=== PATIENT | male | born 1945 | race Caucasian/White ===

== ENCOUNTER 2017-06-20 13:28 | Inpatient (IN) | payer MEDICARE, BC ==
[~2017-06-20] VITALS: Ht 177.8 cm; Wt 77.9 kg
[2017-06-20] MEDS ORDERED: SODIUM CHLORIDE FLUSH 10ML SYR IVF ONE (13:30)
[2017-06-20] MEDS ORDERED: HEPARIN PROTOCOL IIB/IIIA POST-LYTIC MC ONE ×2 (13:30→19:30)
[2017-06-20] MEDS ORDERED: PROPOFOL 100 ML IV ONE (13:31)
[2017-06-20] MEDS: PROPOFOL 100 ML IV PRN ×3 (13:42→22:00)
[2017-06-20] MEDS ORDERED: AMIODARONE 900 MG in DEXTROSE 5% 500 ML IV PRN (13:58)
[2017-06-20 13:59] LABS: BASOPHILS # (AUTO) 0.13 x10^3/uL (0-0.1); BASOPHILS % (AUTO) 1 % (0-1); EOSINOPHILS # (AUTO) 0.03 x10^3/uL (0-0.4); EOSINOPHILS % (AUTO) 0 % (1-7); LYMPHOCYTES # (AUTO) 0.69 x10^3/uL (1-3.4); LYMPHOCYTES % (AUTO) 4 % (22-44); MD NO; MEAN CORPUSCULAR HEMOGLOBIN 32.5 pg (27.5-34.5); MEAN CORPUSCULAR HGB CONC 33.4 g/dL (33.2-36.2); MEAN CORPUSCULAR VOLUME 97.1 fL (81-97); MEAN PLATELET VOLUME 10.2 fL (7.4-10.4); MONOCYTES # (AUTO) 0.47 x10^3/uL (0.2-0.8); MONOCYTES % (AUTO) 3 % (2-9); NEUTROPHILS # (AUTO) 15.88 x10^3/uL (1.8-6.8); NEUTROPHILS % (AUTO) 92 % (42-75); PLATELET COUNT 163 x10^3/uL (130-400); RED BLOOD COUNT 4.83 x10^6/uL (4.38-5.82); RED CELL DISTRIBUTION WIDTH 13.2 % (9.4-14.8)
[2017-06-20] MEDS ORDERED: HEPARIN 5,000 UNITS/ML, 1ML IV ONE (14:00)
[2017-06-20] MEDS ORDERED: PLEASE ENTER ALLERGIES MC SCH (14:00)
[2017-06-20] MEDS ORDERED: SODIUM CHLORIDE FLUSH 10ML SYR IVF PRN (14:00)
[2017-06-20] MEDS ORDERED: HEPARIN 25,000 UNITS/500ML PMX 500 ML IV PRN ×3 (14:00→19:14)
[2017-06-20 14:08] LABS: INTERNATIONAL NORMALIZED RATIO 1.05 (0.93-1.1); PROTHROMBIN TIME 10.8 Seconds (9.6-11.5)
[2017-06-20 14:10] LABS: ALBUMIN 3.5 g/dL (3.4-5.0); ANION GAP 7 mmol/L (5-15); CALCIUM 8.8 mg/dL (8.5-10.1); CHLORIDE 109 mmol/L (98-107); CREATININE 1.27 mg/dL (0.7-1.3)
[2017-06-20] MEDS ORDERED: PHARMACY MAY ADJ FOR RENAL FX MC SCH (14:30)
[2017-06-20] MEDS ORDERED: FILTER 0.22 MICRON IV PRN ×2 (14:30→23:45)
[2017-06-20] MEDS ORDERED: FILTER 1.2 MICRON IV PRN (14:30)
[2017-06-20] MEDS ORDERED: LIDOCAINE-MPF 1%, 2ML ENDO PRN (14:30)
[2017-06-20] MEDS ORDERED: CLOPIDOGREL 300 MG TABLET PO ONE (15:00)
[2017-06-20] MEDS ORDERED: POLYETHYLENE GLYCOL 17 GM PACKET PO PRN (15:00)
[2017-06-20] MEDS ORDERED: BISACODYL 10 MG SUPP PR PRN (15:00)
[2017-06-20] MEDS ORDERED: HEPARIN 5,000 UNITS/ML, 1ML ONE (16:15)
[2017-06-20 17:23] VITALS: BP 123/76
[2017-06-20 17:57] VITALS: BP 123/72
[2017-06-20] MEDS: THIAMINE 100 MG, MVI ADULT 10 ML, FOLIC ACID 1 MG in D5%-0.9% NACL 1,000 ML IV SCH (18:24)
[2017-06-20 18:51] LABS: RAPID INFLUENZA A Negative (Negative); RAPID INFLUENZA B Negative (Negative)
[2017-06-20] MEDS: PIPERACILLIN/TAZO/PMX 3.375GM 50 ML IV SCH (22:27)
[2017-06-20] MEDS: FAMOTIDINE 20 MG/2 ML IVPush SCH (22:31)
[2017-06-20 23:14] LABS: AMPHETAMINE SCREEN, URINE Negative (Negative); BARBITURATE SCREEN, URINE Negative (Negative); BENZODIAZEPINE SCREEN, URINE Positive (Negative); CANNABINOID SCREEN, URINE Negative (Negative); COCAINE SCREEN, URINE Negative (Negative); METHADONE SCREEN, URINE Negative (Negative); MICROSCOPIC INDICATED; OPIATE SCREEN, URINE Negative (Negative)
[2017-06-20] MEDS: FENTANYL PF 100 MCG/2ML IVPush PRN (23:25)
[2017-06-20 23:30] LABS: CULTURE INDICATED? YES
[2017-06-20] MEDS ORDERED: AMIODARONE 900 MG in DEXTROSE 5% 482 ML IV PRN (23:30)
[2017-06-21] MEDS: FENTANYL PF 100 MCG/2ML IVPush PRN ×3 (01:11→20:35)
[2017-06-21] MEDS: PROPOFOL 100 ML IV PRN ×3 (02:44→20:35)
[2017-06-21] MEDS: PIPERACILLIN/TAZO/PMX 3.375GM 50 ML IV SCH ×4 (03:43→21:49)
[2017-06-21 04:00] VITALS: BP 109/67
[2017-06-21 05:10] LABS: MEAN CORPUSCULAR HEMOGLOBIN 33.4 pg (27.5-34.5); MEAN CORPUSCULAR HGB CONC 34.5 g/dL (33.2-36.2); MEAN CORPUSCULAR VOLUME 97.1 fL (81-97); MEAN PLATELET VOLUME 10.8 fL (7.4-10.4); PLATELET COUNT 134 x10^3/uL (130-400); RED BLOOD COUNT 4.72 x10^6/uL (4.38-5.82); RED CELL DISTRIBUTION WIDTH 13.1 % (9.4-14.8)
[2017-06-21 05:22] LABS: CHLORIDE 109 mmol/L (98-107)
[2017-06-21 05:34] LABS: ANION GAP 9 mmol/L (5-15); CREATININE 1.14 mg/dL (0.7-1.3)
[2017-06-21 05:40] LABS: MD YES
[2017-06-21 05:41] LABS: BAND#(MANUAL) 1.27 x10^3/uL; BANDS%(MANUAL) 7 % (0-7); LYMPH#(MANUAL) 1.27 x10^3/uL (1-3.4); LYMPHS% (MANUAL) 7 % (22-44); MONOS#(MANUAL) 0.36 x10^3/uL (0.3-2.7); MONOS% (MANUAL) 2 % (2-9); SEGS% (MANUAL) 84 % (42-75)
[2017-06-21 05:43] LABS: <PLATELET ESTIMATE> ADEQUATE; <RBC MORPHOLOGY> NORMAL; LARGE PLATELETS 1+
[2017-06-21 07:07] LABS: ALBUMIN 2.8 g/dL (3.4-5.0); ANION GAP 8 mmol/L (5-15); CALCIUM 7.9 mg/dL (8.5-10.1); CHLORIDE 109 mmol/L (98-107)
[2017-06-21 07:13] LABS: ALANINE AMINOTRANSFERASE 96 U/L (12-78); ALKALINE PHOSPHATASE 52 U/L (45-117); BILIRUBIN,TOTAL 1.8 mg/dL (0.2-1.0); CHOL/HDL RATIO 2.1; CHOLESTEROL, TOTAL 159 mg/dL (140-239); CREATININE 1.18 mg/dL (0.7-1.3); HDL CHOL % 47 % (26-37); HDL CHOLESTEROL (DIRECT) 75 mg/dL (40-60); LDL CHOLESTEROL,CALCULATED 76 mg/dL (54-169); TOTAL PROTEIN 5.8 g/dL (6.4-8.2); TRIGLYCERIDES 41 mg/dL (50-200); VLDL CHOLESTEROL 8 mg/dL (0-25)
[2017-06-21 07:18] LABS: THYROID STIMULATING HORMONE 0.565 mIU/L (0.358-3.740)
[2017-06-21] MEDS: FAMOTIDINE 20 MG/2 ML IVPush SCH ×2 (10:22→20:37)
[2017-06-21] MEDS: CLOPIDOGREL 75 MG TABLET PO SCH (18:21)
[2017-06-21] MEDS: ASPIRIN 81 MG TABLET CHEW PO SCH (18:21)
[2017-06-21] MEDS: THIAMINE 100 MG, MVI ADULT 10 ML, FOLIC ACID 1 MG in D5%-0.9% NACL 1,000 ML IV SCH (21:48)
[2017-06-22] MEDS: FENTANYL PF 100 MCG/2ML IVPush PRN ×3 (02:06→05:19)
[2017-06-22] MEDS: PIPERACILLIN/TAZO/PMX 3.375GM 50 ML IV SCH (03:55)
[2017-06-22 04:00] VITALS: BP 128/75
[2017-06-22] MEDS: PROPOFOL 100 ML IV PRN ×4 (04:04→23:35)
[2017-06-22 05:06] LABS: BASOPHILS # (AUTO) 0.03 x10^3/uL (0-0.1); BASOPHILS % (AUTO) 0 % (0-1); EOSINOPHILS # (AUTO) 0.27 x10^3/uL (0-0.4); EOSINOPHILS % (AUTO) 2 % (1-7); LYMPHOCYTES # (AUTO) 1.53 x10^3/uL (1-3.4); LYMPHOCYTES % (AUTO) 13 % (22-44); MD NO; MEAN CORPUSCULAR HEMOGLOBIN 33.2 pg (27.5-34.5); MEAN CORPUSCULAR HGB CONC 33.8 g/dL (33.2-36.2); MEAN CORPUSCULAR VOLUME 98.3 fL (81-97); MEAN PLATELET VOLUME 11.1 fL (7.4-10.4); MONOCYTES # (AUTO) 1.05 x10^3/uL (0.2-0.8); MONOCYTES % (AUTO) 9 % (2-9); NEUTROPHILS # (AUTO) 8.92 x10^3/uL (1.8-6.8); NEUTROPHILS % (AUTO) 76 % (42-75); PLATELET COUNT 126 x10^3/uL (130-400); RED BLOOD COUNT 4.16 x10^6/uL (4.38-5.82); RED CELL DISTRIBUTION WIDTH 13.2 % (9.4-14.8)
[2017-06-22 05:11] LABS: ANION GAP 6 mmol/L (5-15); CALCIUM 7.4 mg/dL (8.5-10.1); CHLORIDE 108 mmol/L (98-107); CREATININE 1.12 mg/dL (0.7-1.3)
[2017-06-22] MEDS: AMIODARONE 200 MG TABLET PO SCH ×2 (09:34→21:38)
[2017-06-22] MEDS: FAMOTIDINE 20 MG/2 ML IVPush SCH ×2 (09:34→21:37)
[2017-06-22] MEDS: DIAZEPAM 5 MG/ML, 10ML VIAL IVPush SCH ×4 (10:07→21:37)
[2017-06-22] MEDS: AMPICILLIN/SULBACTAM 3 GM in SODIUM CHLORIDE 0.9% 100 ML IV SCH ×3 (10:22→21:37)
[2017-06-22] MEDS: THIAMINE 100 MG, MVI ADULT 10 ML, FOLIC ACID 1 MG in D5%-0.9% NACL 1,000 ML IV SCH (14:55)
[2017-06-22] MEDS: ASPIRIN 81 MG TABLET CHEW PO SCH (16:59)
[2017-06-22] MEDS: CLOPIDOGREL 75 MG TABLET PO SCH (16:59)
[2017-06-23] MEDS: DIAZEPAM 5 MG/ML, 10ML VIAL IVPush SCH ×5 (00:28→20:47)
[2017-06-23] MEDS: FENTANYL PF 100 MCG/2ML IVPush PRN (02:48)
[2017-06-23] MEDS: AMPICILLIN/SULBACTAM 3 GM in SODIUM CHLORIDE 0.9% 100 ML IV SCH ×4 (03:27→20:47)
[2017-06-23 04:00] VITALS: BP 116/57
[2017-06-23] MEDS: PROPOFOL 100 ML IV PRN ×3 (05:06→17:58)
[2017-06-23 06:28] LABS: MEAN CORPUSCULAR HEMOGLOBIN 33.3 pg (27.5-34.5); MEAN CORPUSCULAR HGB CONC 34.4 g/dL (33.2-36.2); MEAN CORPUSCULAR VOLUME 96.7 fL (81-97); RED BLOOD COUNT 3.72 x10^6/uL (4.38-5.82); RED CELL DISTRIBUTION WIDTH 13.3 % (9.4-14.8)
[2017-06-23 06:31] LABS: ALANINE AMINOTRANSFERASE 57 U/L (12-78); ANION GAP 8 mmol/L (5-15); CALCIUM 7.9 mg/dL (8.5-10.1); CHLORIDE 112 mmol/L (98-107); CREATININE 0.82 mg/dL (0.7-1.3)
[2017-06-23 06:33] LABS: ALKALINE PHOSPHATASE 57 U/L (45-117); BILIRUBIN,TOTAL 0.6 mg/dL (0.2-1.0); TOTAL PROTEIN 5.3 g/dL (6.4-8.2); TRIGLYCERIDES 93 mg/dL (50-200)
[2017-06-23 06:53] LABS: BASOPHILS # (AUTO) 0.01 x10^3/uL (0-0.1); BASOPHILS % (AUTO) 0 % (0-1); EOSINOPHILS # (AUTO) 0.24 x10^3/uL (0-0.4); EOSINOPHILS % (AUTO) 3 % (1-7); LYMPHOCYTES # (AUTO) 0.92 x10^3/uL (1-3.4); LYMPHOCYTES % (AUTO) 11 % (22-44); MD SCAN; MEAN PLATELET VOLUME 11.1 fL (7.4-10.4); MONOCYTES # (AUTO) 0.82 x10^3/uL (0.2-0.8); MONOCYTES % (AUTO) 9 % (2-9); NEUTROPHILS # (AUTO) 6.71 x10^3/uL (1.8-6.8); NEUTROPHILS % (AUTO) 77 % (42-75); PLATELET COUNT 115 x10^3/uL (130-400)
[2017-06-23] MEDS ORDERED: POTASSIUM PHOSPHATE 44 MEQ in SODIUM CHLORIDE 0.9% 500 ML IV ONE (08:00)
[2017-06-23] MEDS: AMIODARONE 200 MG TABLET PO SCH ×2 (08:43→20:46)
[2017-06-23] MEDS: FAMOTIDINE 20 MG/2 ML IVPush SCH ×2 (08:43→20:47)
[2017-06-23] MEDS: FOLIC ACID 1 MG TABLET NG SCH (09:41)
[2017-06-23] MEDS: MULTIVITAMIN LIQUID NG SCH (09:41)
[2017-06-23] MEDS: THIAMINE 100MG TABLET NG SCH (09:41)
[2017-06-23 10:35] LABS: HIT RESULT NEGATIVE (NEGATIVE)
[2017-06-23] MEDS: POTASSIUM CHLORIDE 20 MEQ TAB.ER.PRT PO SCH (17:03)
[2017-06-23] MEDS: ASPIRIN 81 MG TABLET CHEW PO SCH (17:03)
[2017-06-23] MEDS: CLOPIDOGREL 75 MG TABLET PO SCH (17:03)
[2017-06-23] MEDS: FUROSEMIDE 20 MG/2 ML IV SCH (17:04)
[2017-06-24] MEDS: PROPOFOL 100 ML IV PRN ×3 (01:16→17:34)
[2017-06-24 04:00] VITALS: BP 145/68
[2017-06-24 04:10] LABS: ANION GAP 9 mmol/L (5-15); CALCIUM 8.5 mg/dL (8.5-10.1); CHLORIDE 111 mmol/L (98-107); CREATININE 0.96 mg/dL (0.7-1.3)
[2017-06-24] MEDS: AMPICILLIN/SULBACTAM 3 GM in SODIUM CHLORIDE 0.9% 100 ML IV SCH ×4 (04:11→22:21)
[2017-06-24] MEDS: DIAZEPAM 5 MG/ML, 10ML VIAL IVPush SCH ×4 (04:11→15:00)
[2017-06-24 04:16] LABS: BASOPHILS # (AUTO) 0.03 x10^3/uL (0-0.1); BASOPHILS % (AUTO) 0 % (0-1); EOSINOPHILS # (AUTO) 0.22 x10^3/uL (0-0.4); EOSINOPHILS % (AUTO) 3 % (1-7); LYMPHOCYTES # (AUTO) 0.82 x10^3/uL (1-3.4); LYMPHOCYTES % (AUTO) 11 % (22-44); MD NO; MEAN CORPUSCULAR HEMOGLOBIN 32.6 pg (27.5-34.5); MEAN CORPUSCULAR HGB CONC 33.6 g/dL (33.2-36.2); MEAN CORPUSCULAR VOLUME 97.1 fL (81-97); MEAN PLATELET VOLUME 11.4 fL (7.4-10.4); MONOCYTES # (AUTO) 0.76 x10^3/uL (0.2-0.8); MONOCYTES % (AUTO) 11 % (2-9); NEUTROPHILS # (AUTO) 5.37 x10^3/uL (1.8-6.8); NEUTROPHILS % (AUTO) 75 % (42-75); PLATELET COUNT 148 x10^3/uL (130-400); RED BLOOD COUNT 4.09 x10^6/uL (4.38-5.82)
[2017-06-24] MEDS: FUROSEMIDE 20 MG/2 ML IV SCH ×2 (07:56→17:49)
[2017-06-24] MEDS: POTASSIUM CHLORIDE 20 MEQ TAB.ER.PRT PO SCH ×2 (07:56→17:48)
[2017-06-24] MEDS: THIAMINE 100MG TABLET NG SCH (07:56)
[2017-06-24] MEDS: AMIODARONE 200 MG TABLET PO SCH ×2 (07:56→20:17)
[2017-06-24] MEDS: FAMOTIDINE 20 MG/2 ML IVPush SCH ×2 (07:56→20:17)
[2017-06-24] MEDS: FOLIC ACID 1 MG TABLET NG SCH (07:56)
[2017-06-24] MEDS: MULTIVITAMIN LIQUID NG SCH (08:03)
[2017-06-24] MEDS: MIDAZOLAM 1 MG/ML, 2ML IVPush PRN ×2 (09:43→20:17)
[2017-06-24] MEDS: ASPIRIN 81 MG TABLET CHEW PO SCH (17:48)
[2017-06-24] MEDS: CLOPIDOGREL 75 MG TABLET PO SCH (17:48)
[2017-06-24] MEDS: FENTANYL PF 100 MCG/2ML IVPush PRN (20:16)
[2017-06-25] MEDS: AMPICILLIN/SULBACTAM 3 GM in SODIUM CHLORIDE 0.9% 100 ML IV SCH ×4 (04:10→22:04)
[2017-06-25 04:39] LABS: BASOPHILS # (AUTO) 0.03 x10^3/uL (0-0.1); BASOPHILS % (AUTO) 1 % (0-1); EOSINOPHILS # (AUTO) 0.32 x10^3/uL (0-0.4); EOSINOPHILS % (AUTO) 5 % (1-7); LYMPHOCYTES # (AUTO) 1.14 x10^3/uL (1-3.4); LYMPHOCYTES % (AUTO) 17 % (22-44); MD NO; MEAN CORPUSCULAR HGB CONC 34.1 g/dL (33.2-36.2); MEAN CORPUSCULAR VOLUME 96.8 fL (81-97); MONOCYTES # (AUTO) 1.06 x10^3/uL (0.2-0.8); MONOCYTES % (AUTO) 16 % (2-9); NEUTROPHILS # (AUTO) 4.09 x10^3/uL (1.8-6.8); NEUTROPHILS % (AUTO) 62 % (42-75); PLATELET COUNT 151 x10^3/uL (130-400); RED BLOOD COUNT 3.85 x10^6/uL (4.38-5.82); RED CELL DISTRIBUTION WIDTH 12.9 % (9.4-14.8)
[2017-06-25] MEDS: FENTANYL PF 100 MCG/2ML IVPush PRN (04:47)
[2017-06-25] MEDS: MIDAZOLAM 1 MG/ML, 2ML IVPush PRN (04:47)
[2017-06-25] MEDS: PROPOFOL 100 ML IV PRN ×4 (04:51→22:04)
[2017-06-25 04:58] LABS: ANION GAP 8 mmol/L (5-15); CALCIUM 8.5 mg/dL (8.5-10.1); CHLORIDE 111 mmol/L (98-107)
[2017-06-25 04:59] LABS: CREATININE 0.91 mg/dL (0.7-1.3)
[2017-06-25 05:46] VITALS: BP 102/60
[2017-06-25] MEDS: FOLIC ACID 1 MG TABLET NG SCH (08:31)
[2017-06-25] MEDS: THIAMINE 100MG TABLET NG SCH (08:31)
[2017-06-25] MEDS: POTASSIUM CHLORIDE 20 MEQ TAB.ER.PRT PO SCH ×2 (08:32→17:46)
[2017-06-25] MEDS: MULTIVITAMIN LIQUID NG SCH (08:32)
[2017-06-25] MEDS: FUROSEMIDE 20 MG/2 ML IV SCH ×2 (08:32→17:46)
[2017-06-25] MEDS: FAMOTIDINE 20 MG/2 ML IVPush SCH ×2 (08:32→22:03)
[2017-06-25] MEDS: AMIODARONE 200 MG TABLET PO SCH ×2 (08:32→22:04)
[2017-06-25] MEDS: ASPIRIN 81 MG TABLET CHEW PO SCH (17:46)
[2017-06-25] MEDS: CLOPIDOGREL 75 MG TABLET PO SCH (17:46)
[2017-06-26 04:00] VITALS: BP 138/64
[2017-06-26 04:21] LABS: ANION GAP 8 mmol/L (5-15); CALCIUM 8.6 mg/dL (8.5-10.1); CHLORIDE 110 mmol/L (98-107); CREATININE 1.22 mg/dL (0.7-1.3); TRIGLYCERIDES 122 mg/dL (50-200)
[2017-06-26] MEDS: AMPICILLIN/SULBACTAM 3 GM in SODIUM CHLORIDE 0.9% 100 ML IV SCH ×2 (04:21→08:45)
[2017-06-26 04:58] LABS: BASOPHILS # (AUTO) 0.07 x10^3/uL (0-0.1); BASOPHILS % (AUTO) 1 % (0-1); EOSINOPHILS # (AUTO) 0.35 x10^3/uL (0-0.4); EOSINOPHILS % (AUTO) 5 % (1-7); LYMPHOCYTES # (AUTO) 1.12 x10^3/uL (1-3.4); LYMPHOCYTES % (AUTO) 14 % (22-44); MEAN CORPUSCULAR HEMOGLOBIN 32.8 pg (27.5-34.5); MEAN CORPUSCULAR HGB CONC 34.2 g/dL (33.2-36.2); MEAN CORPUSCULAR VOLUME 95.8 fL (81-97); MEAN PLATELET VOLUME 11.8 fL (7.4-10.4); MONOCYTES # (AUTO) 1.24 x10^3/uL (0.2-0.8); MONOCYTES % (AUTO) 16 % (2-9); NEUTROPHILS # (AUTO) 5.09 x10^3/uL (1.8-6.8); NEUTROPHILS % (AUTO) 65 % (42-75); PLATELET COUNT 160 x10^3/uL (130-400); RED BLOOD COUNT 4.07 x10^6/uL (4.38-5.82); RED CELL DISTRIBUTION WIDTH 13.1 % (9.4-14.8)
[2017-06-26 04:59] LABS: MD SCAN
[2017-06-26] MEDS: PROPOFOL 100 ML IV PRN ×5 (05:10→21:48)
[2017-06-26] MEDS: FUROSEMIDE 20 MG/2 ML IV SCH ×2 (07:53→08:44)
[2017-06-26] MEDS ORDERED: ACETAMINOPHEN 650 MG/20.3 ML UDC PO PRN (08:30)
[2017-06-26] MEDS: THIAMINE 100MG TABLET NG SCH (08:43)
[2017-06-26] MEDS: MULTIVITAMIN LIQUID NG SCH (08:43)
[2017-06-26] MEDS: AMIODARONE 200 MG TABLET PO SCH ×2 (08:44→21:47)
[2017-06-26] MEDS: FAMOTIDINE 20 MG/2 ML IVPush SCH ×2 (08:44→21:47)
[2017-06-26] MEDS: FOLIC ACID 1 MG TABLET NG SCH (09:21)
[2017-06-26] MEDS: POTASSIUM CHLORIDE 20 MEQ TAB.ER.PRT PO SCH ×2 (09:21→19:40)
[2017-06-26] MEDS ORDERED: PIPERACILLIN/TAZO/PMX 4.5GM 100 ML IV SCH (11:30)
[2017-06-26] MEDS ORDERED: VANCOMYCIN PER PHARMACY MC PRN (11:30)
[2017-06-26 11:55] LABS: MICROSCOPIC NOT IND
[2017-06-26 11:58] LABS: CULTURE INDICATED? NO
[2017-06-26] MEDS ORDERED: PHARMACOKINETIC MONITORING MC PRN (12:00)
[2017-06-26] MEDS: VANCOMYCIN 1,600 MG in SODIUM CHLORIDE 0.9% 250 ML IV SCH (12:41)
[2017-06-26] MEDS: DIAZEPAM 5 MG/ML, 10ML VIAL IV SCH ×3 (12:41→23:41)
[2017-06-26] MEDS: CLOPIDOGREL 75 MG TABLET PO SCH (17:47)
[2017-06-26] MEDS: FUROSEMIDE 40 MG/4 ML IV SCH (17:47)
[2017-06-26] MEDS: ASPIRIN 81 MG TABLET CHEW PO SCH (17:47)
[2017-06-26] MEDS: PIPERACILLIN/TAZO 4.5 GM in SODIUM CHLORIDE 0.9% 100 ML IV SCH (19:42)
[2017-06-27] MEDS: PROPOFOL 100 ML IV PRN ×2 (02:18→15:25)
[2017-06-27] MEDS: PIPERACILLIN/TAZO 4.5 GM in SODIUM CHLORIDE 0.9% 100 ML IV SCH ×3 (03:51→19:37)
[2017-06-27 04:00] VITALS: BP 134/63
[2017-06-27 04:41] LABS: MEAN CORPUSCULAR HGB CONC 34.1 g/dL (33.2-36.2); MEAN CORPUSCULAR VOLUME 96.7 fL (81-97); PLATELET COUNT 141 x10^3/uL (130-400); RED BLOOD COUNT 3.96 x10^6/uL (4.38-5.82); RED CELL DISTRIBUTION WIDTH 13.1 % (9.4-14.8)
[2017-06-27 04:44] LABS: ANION GAP 8 mmol/L (5-15); CHLORIDE 106 mmol/L (98-107)
[2017-06-27 04:45] LABS: CALCIUM 8.4 mg/dL (8.5-10.1); CREATININE 1.65 mg/dL (0.7-1.3)
[2017-06-27 05:26] LABS: BASOPHILS # (AUTO) 0.05 x10^3/uL (0-0.1); BASOPHILS % (AUTO) 0 % (0-1); EOSINOPHILS # (AUTO) 0.22 x10^3/uL (0-0.4); EOSINOPHILS % (AUTO) 1 % (1-7); LYMPHOCYTES # (AUTO) 1.18 x10^3/uL (1-3.4); LYMPHOCYTES % (AUTO) 6 % (22-44); MD SCAN; MONOCYTES # (AUTO) 1.36 x10^3/uL (0.2-0.8); MONOCYTES % (AUTO) 7 % (2-9); NEUTROPHILS # (AUTO) 15.68 x10^3/uL (1.8-6.8); NEUTROPHILS % (AUTO) 85 % (42-75)
[2017-06-27] MEDS: DIAZEPAM 5 MG/ML, 10ML VIAL IV SCH ×2 (05:37→11:13)
[2017-06-27] MEDS: FUROSEMIDE 40 MG/4 ML IV SCH ×2 (07:59→16:21)
[2017-06-27] MEDS: POTASSIUM CHLORIDE 20 MEQ TAB.ER.PRT PO SCH ×2 (07:59→16:21)
[2017-06-27] MEDS: FAMOTIDINE 20 MG/2 ML IVPush SCH ×2 (07:59→21:12)
[2017-06-27] MEDS: FOLIC ACID 1 MG TABLET NG SCH (08:00)
[2017-06-27] MEDS: AMIODARONE 200 MG TABLET PO SCH ×2 (08:00→21:12)
[2017-06-27] MEDS: MULTIVITAMIN LIQUID NG SCH (08:00)
[2017-06-27] MEDS: THIAMINE 100MG TABLET NG SCH (09:22)
[2017-06-27] MEDS: VANCOMYCIN 1,600 MG in SODIUM CHLORIDE 0.9% 250 ML IV SCH (12:01)
[2017-06-27] MEDS: CLOPIDOGREL 75 MG TABLET PO SCH (16:21)
[2017-06-27] MEDS: ASPIRIN 81 MG TABLET CHEW PO SCH (16:21)
[2017-06-27] MEDS: DIAZEPAM 5 MG/ML, 10ML VIAL IV PRN (20:41)
[2017-06-28] MEDS: PIPERACILLIN/TAZO 4.5 GM in SODIUM CHLORIDE 0.9% 100 ML IV SCH ×3 (03:40→20:45)
[2017-06-28 04:00] VITALS: BP 109/78
[2017-06-28 04:26] LABS: MEAN CORPUSCULAR HEMOGLOBIN 32.1 pg (27.5-34.5); MEAN CORPUSCULAR HGB CONC 33.6 g/dL (33.2-36.2); MEAN CORPUSCULAR VOLUME 95.4 fL (81-97); MEAN PLATELET VOLUME 12.4 fL (7.4-10.4); PLATELET COUNT 205 x10^3/uL (130-400); RED BLOOD COUNT 3.92 x10^6/uL (4.38-5.82); RED CELL DISTRIBUTION WIDTH 13.4 % (9.4-14.8)
[2017-06-28 04:37] LABS: ANION GAP 8 mmol/L (5-15); CALCIUM 8.4 mg/dL (8.5-10.1); CHLORIDE 107 mmol/L (98-107)
[2017-06-28 04:42] LABS: MD YES
[2017-06-28 04:46] LABS: BAND#(MANUAL) 0.61 x10^3/uL; BANDS%(MANUAL) 5 % (0-7); BASOS#(MANUAL) 0.12 x10^3/uL (0-0.1); BASOS% (MANUAL) 1 % (0-1); EOS% (MANUAL) 9 % (1-7); LYMPH#(MANUAL) 1.22 x10^3/uL (1-3.4); LYMPHS% (MANUAL) 10 % (22-44); METAMYELOCYTES# (MANUAL) 0.12 x10^3/uL (0-0); METAMYELOCYTES% (MANUAL) 1 % (0-1); MONOS#(MANUAL) 0.73 x10^3/uL (0.3-2.7); MONOS% (MANUAL) 6 % (2-9); MYELOCYTES# (MANUAL) 0.12 x10^3/uL (0-0); MYELOCYTES% (MANUAL) 1 % (0-0); SEG#(MANUAL) 8.17 x10^3/uL (1.8-6.8); SEGS% (MANUAL) 67 % (42-75)
[2017-06-28 04:47] LABS: <PLATELET ESTIMATE> ADEQUATE; <RBC MORPHOLOGY> NORMAL; LARGE PLATELETS 1+
[2017-06-28] MEDS: MULTIVITAMIN LIQUID NG SCH (07:55)
[2017-06-28] MEDS: FOLIC ACID 1 MG TABLET NG SCH (07:56)
[2017-06-28] MEDS: FUROSEMIDE 40 MG/4 ML IV SCH ×2 (07:56→17:01)
[2017-06-28] MEDS: AMIODARONE 200 MG TABLET PO SCH (07:56)
[2017-06-28] MEDS: POTASSIUM CHLORIDE 20 MEQ TAB.ER.PRT PO SCH ×2 (07:56→16:54)
[2017-06-28] MEDS: THIAMINE 100MG TABLET NG SCH (07:56)
[2017-06-28] MEDS: VANCOMYCIN 1,600 MG in SODIUM CHLORIDE 0.9% 250 ML IV SCH (12:29)
[2017-06-28] MEDS ORDERED: SCOPOLAMINE PATCH, 1.5MG PATCH.TD72 TD ONE (13:00)
[2017-06-28] MEDS: CLOPIDOGREL 75 MG TABLET PO SCH (16:54)
[2017-06-28] MEDS: ASPIRIN 81 MG TABLET CHEW PO SCH (16:54)
[2017-06-28] MEDS: ATORVASTATIN 40 MG TABLET PO SCH (20:45)
[2017-06-28] MEDS: FAMOTIDINE 20 MG/2 ML IVPush SCH (20:45)
[2017-06-29] MEDS: PIPERACILLIN/TAZO 4.5 GM in SODIUM CHLORIDE 0.9% 100 ML IV SCH ×3 (03:39→22:54)
[2017-06-29 04:00] VITALS: BP 114/66
[2017-06-29 04:35] LABS: MEAN CORPUSCULAR HEMOGLOBIN 33.1 pg (27.5-34.5); MEAN CORPUSCULAR HGB CONC 34.4 g/dL (33.2-36.2); MEAN CORPUSCULAR VOLUME 96.2 fL (81-97); MEAN PLATELET VOLUME 11.8 fL (7.4-10.4); PLATELET COUNT 258 x10^3/uL (130-400); RED BLOOD COUNT 3.94 x10^6/uL (4.38-5.82); RED CELL DISTRIBUTION WIDTH 13.1 % (9.4-14.8)
[2017-06-29 04:44] LABS: ANION GAP 9 mmol/L (5-15); CALCIUM 8.8 mg/dL (8.5-10.1); CHLORIDE 110 mmol/L (98-107)
[2017-06-29 04:46] LABS: CREATININE 1.36 mg/dL (0.7-1.3); TRIGLYCERIDES 144 mg/dL (50-200)
[2017-06-29 05:34] LABS: MD YES
[2017-06-29 05:36] LABS: EOS#(MANUAL) 0.39 x10^3/uL (0.0-0.4); EOS% (MANUAL) 3 % (1-7); LYMPH#(MANUAL) 1.18 x10^3/uL (1-3.4); LYMPHS% (MANUAL) 9 % (22-44); MONOS#(MANUAL) 1.05 x10^3/uL (0.3-2.7); MONOS% (MANUAL) 8 % (2-9); MYELOCYTES# (MANUAL) 0.13 x10^3/uL (0-0); MYELOCYTES% (MANUAL) 1 % (0-0); SEG#(MANUAL) 10.35 x10^3/uL (1.8-6.8); SEGS% (MANUAL) 79 % (42-75)
[2017-06-29 05:37] LABS: <PLATELET ESTIMATE> ADEQUATE; <RBC MORPHOLOGY> NORMAL; TOXIC GRAN 1+
[2017-06-29 05:38] LABS: LARGE PLATELETS 1+
[2017-06-29] MEDS: THIAMINE 100MG TABLET NG SCH ×2 (09:00→09:15)
[2017-06-29] MEDS: FOLIC ACID 1 MG TABLET NG SCH ×2 (09:00→09:15)
[2017-06-29] MEDS: HEPARIN 5,000 UNITS/ML, 1ML SQ SCH ×2 (09:15→22:56)
[2017-06-29 14:42] VITALS: BP 122/73
[2017-06-29 20:30] VITALS: BP 134/84
[2017-06-29] MEDS: ATORVASTATIN 40 MG TABLET PO SCH (21:00)
[2017-06-29] MEDS: ASPIRIN 81 MG TABLET CHEW PO SCH (22:56)
[2017-06-29] MEDS: CLOPIDOGREL 75 MG TABLET PO SCH (22:56)
[2017-06-29] MEDS: FAMOTIDINE 20 MG/2 ML IVPush SCH (22:56)
[2017-06-30] VITALS (10 sets, daily range): BP systolic 123–146; BP diastolic 66–83
[2017-06-30] MEDS: DIAZEPAM 5 MG/ML, 10ML VIAL IV PRN (01:28)
[2017-06-30 06:53] LABS: BASOPHILS # (AUTO) 0.06 x10^3/uL (0-0.1); BASOPHILS % (AUTO) 1 % (0-1); EOSINOPHILS # (AUTO) 0.43 x10^3/uL (0-0.4); EOSINOPHILS % (AUTO) 4 % (1-7); LYMPHOCYTES # (AUTO) 1.53 x10^3/uL (1-3.4); LYMPHOCYTES % (AUTO) 15 % (22-44); MD NO; MEAN CORPUSCULAR HEMOGLOBIN 31.9 pg (27.5-34.5); MEAN CORPUSCULAR HGB CONC 33.6 g/dL (33.2-36.2); MEAN PLATELET VOLUME 11.3 fL (7.4-10.4); MONOCYTES # (AUTO) 0.98 x10^3/uL (0.2-0.8); MONOCYTES % (AUTO) 10 % (2-9); NEUTROPHILS # (AUTO) 7.01 x10^3/uL (1.8-6.8); NEUTROPHILS % (AUTO) 70 % (42-75); PLATELET COUNT 301 x10^3/uL (130-400); RED BLOOD COUNT 4.34 x10^6/uL (4.38-5.82); RED CELL DISTRIBUTION WIDTH 12.7 % (9.4-14.8)
[2017-06-30] MEDS: HEPARIN 5,000 UNITS/ML, 1ML SQ SCH ×3 (07:00→17:58)
[2017-06-30 07:08] LABS: ANION GAP 8 mmol/L (5-15); CALCIUM 8.9 mg/dL (8.5-10.1); CHLORIDE 112 mmol/L (98-107)
[2017-06-30 07:12] LABS: ALANINE AMINOTRANSFERASE 58 U/L (12-78); ALKALINE PHOSPHATASE 142 U/L (45-117); BILIRUBIN,TOTAL 0.9 mg/dL (0.2-1.0); CREATININE 1.21 mg/dL (0.7-1.3); TOTAL PROTEIN 7.8 g/dL (6.4-8.2)
[2017-06-30] MEDS: PIPERACILLIN/TAZO 4.5 GM in SODIUM CHLORIDE 0.9% 100 ML IV SCH ×2 (09:53→17:58)
[2017-06-30] MEDS: MULTIVITAMIN 1 TABLET PO SCH (09:54)
[2017-06-30] MEDS: FOLIC ACID 1 MG TABLET NG SCH (09:54)
[2017-06-30] MEDS: THIAMINE 100MG TABLET NG SCH (09:54)
[2017-06-30] MEDS: CLOPIDOGREL 75 MG TABLET PO SCH (10:00)
[2017-06-30 10:03] LABS: ALBUMIN 2.6 g/dL (3.4-5.0)
[2017-06-30] MEDS: ASPIRIN 81 MG TABLET CHEW PO SCH (17:58)
[2017-06-30] MEDS ORDERED: FAMOTIDINE 20 MG TABLET PO SCH (21:00)
[2017-06-30] MEDS ORDERED: FAMOTIDINE 20 MG/2 ML IVPush SCH (21:00)
[2017-06-30] MEDS: FAMOTIDINE 20 MG/2 ML IV SCH (21:21)
[2017-06-30] MEDS: ATORVASTATIN 40 MG TABLET PO SCH (21:22)
[2017-07-01 01:32] VITALS: BP 123/73
[2017-07-01] MEDS: PIPERACILLIN/TAZO 4.5 GM in SODIUM CHLORIDE 0.9% 100 ML IV SCH ×3 (01:49→17:27)
[2017-07-01] MEDS: HEPARIN 5,000 UNITS/ML, 1ML SQ SCH ×3 (01:50→17:27)
[2017-07-01 05:34] LABS: BASOPHILS # (AUTO) 0.08 x10^3/uL (0-0.1); BASOPHILS % (AUTO) 1 % (0-1); EOSINOPHILS # (AUTO) 0.47 x10^3/uL (0-0.4); EOSINOPHILS % (AUTO) 5 % (1-7); LYMPHOCYTES # (AUTO) 1.17 x10^3/uL (1-3.4); LYMPHOCYTES % (AUTO) 13 % (22-44); MD NO; MEAN CORPUSCULAR HEMOGLOBIN 33.6 pg (27.5-34.5); MEAN CORPUSCULAR HGB CONC 34.9 g/dL (33.2-36.2); MEAN CORPUSCULAR VOLUME 96.3 fL (81-97); MEAN PLATELET VOLUME 11.2 fL (7.4-10.4); MONOCYTES # (AUTO) 1.12 x10^3/uL (0.2-0.8); MONOCYTES % (AUTO) 12 % (2-9); NEUTROPHILS # (AUTO) 6.32 x10^3/uL (1.8-6.8); NEUTROPHILS % (AUTO) 69 % (42-75); PLATELET COUNT 312 x10^3/uL (130-400); RED BLOOD COUNT 3.95 x10^6/uL (4.38-5.82); RED CELL DISTRIBUTION WIDTH 12.9 % (9.4-14.8)
[2017-07-01 05:43] LABS: ANION GAP 8 mmol/L (5-15); CHLORIDE 116 mmol/L (98-107)
[2017-07-01 06:12] LABS: CREATININE 1.25 mg/dL (0.7-1.3)
[2017-07-01 06:48] VITALS: BP 126/79
[2017-07-01] MEDS: MULTIVITAMIN 1 TABLET PO SCH (10:00)
[2017-07-01] MEDS: CLOPIDOGREL 75 MG TABLET PO SCH (10:00)
[2017-07-01] MEDS: THIAMINE 100MG TABLET NG SCH (10:00)
[2017-07-01] MEDS: FAMOTIDINE 20 MG/2 ML IV SCH ×2 (10:00→22:36)
[2017-07-01] MEDS: FOLIC ACID 1 MG TABLET NG SCH (10:00)
[2017-07-01 13:36] VITALS: BP 129/78
[2017-07-01] MEDS: ASPIRIN 81 MG TABLET CHEW PO SCH (17:27)
[2017-07-01 18:45] VITALS: BP 119/75
[2017-07-01] MEDS ORDERED: SENNA/DOCUSATE TABLET PO SCH (19:30)
[2017-07-01] MEDS: SENNOSIDES 8.8 MG/5 ML ORAL SOL PO SCH (22:37)
[2017-07-01] MEDS: DOCUSATE 50 MG/5 ML, 10ML UDC PO SCH (22:37)
[2017-07-01] MEDS: ATORVASTATIN 40 MG TABLET PO SCH (22:37)
[2017-07-02] MEDS: HEPARIN 5,000 UNITS/ML, 1ML SQ SCH ×3 (01:42→17:57)
[2017-07-02] MEDS: PIPERACILLIN/TAZO 4.5 GM in SODIUM CHLORIDE 0.9% 100 ML IV SCH ×3 (01:42→17:57)
[2017-07-02 02:02] VITALS: BP 129/80
[2017-07-02 07:25] VITALS: BP 127/73
[2017-07-02] MEDS: SENNOSIDES 8.8 MG/5 ML ORAL SOL PO SCH (09:00)
[2017-07-02] MEDS: FAMOTIDINE 20 MG/2 ML IV SCH ×2 (09:00→22:23)
[2017-07-02] MEDS: THIAMINE 100MG TABLET NG SCH (09:00)
[2017-07-02] MEDS: DOCUSATE 50 MG/5 ML, 10ML UDC PO SCH (09:00)
[2017-07-02] MEDS: CLOPIDOGREL 75 MG TABLET PO SCH (09:00)
[2017-07-02] MEDS: FOLIC ACID 1 MG TABLET NG SCH (09:00)
[2017-07-02] MEDS: MULTIVITAMIN 1 TABLET PO SCH (09:00)
[2017-07-02] MEDS ORDERED: MIDAZOLAM 1 MG/ML, 2ML ONE (10:17)
[2017-07-02] MEDS ORDERED: FENTANYL PF 100 MCG/2ML ONE (10:18)
[2017-07-02] MEDS ORDERED: VERAPAMIL 2.5 MG/ML, 2ML ONE (10:18)
[2017-07-02] MEDS ORDERED: HEPARIN 1,000 UNITS/ML, 10ML ONE (10:18)
[2017-07-02] MEDS ORDERED: LIDOCAINE 2%, 20ML ONE (10:18)
[2017-07-02] MEDS ORDERED: BIVALIRUDIN 250 MG ONE (11:00)
[2017-07-02] MEDS: SODIUM CHLORIDE 0.9% 1,000 ML IV SCH ×2 (11:12→19:12)
[2017-07-02] MEDS ORDERED: BIVALIRUDIN 250 MG in DEXTROSE 5% 50 ML IV SCH (11:12)
[2017-07-02] MEDS ORDERED: TICAGRELOR 90 MG TABLET ONE (11:17)
[2017-07-02] MEDS ORDERED: ASPIRIN 325 MG TABLET EC ONE (11:17)
[2017-07-02 15:06] VITALS: BP 127/81
[2017-07-02] MEDS: ASPIRIN 81 MG TABLET CHEW PO SCH (17:57)
[2017-07-02 18:38] VITALS: BP 142/94
[2017-07-02] MEDS: ATORVASTATIN 40 MG TABLET PO SCH (22:23)
[2017-07-03 01:55] VITALS: BP 113/63
[2017-07-03] MEDS: PIPERACILLIN/TAZO 4.5 GM in SODIUM CHLORIDE 0.9% 100 ML IV SCH ×3 (02:00→17:53)
[2017-07-03] MEDS: HEPARIN 5,000 UNITS/ML, 1ML SQ SCH ×3 (02:01→17:54)
[2017-07-03] MEDS: SODIUM CHLORIDE 0.9% 1,000 ML IV SCH ×3 (03:12→21:34)
[2017-07-03 05:44] LABS: BASOPHILS # (AUTO) 0.07 x10^3/uL (0-0.1); BASOPHILS % (AUTO) 1 % (0-1); EOSINOPHILS # (AUTO) 0.53 x10^3/uL (0-0.4); EOSINOPHILS % (AUTO) 6 % (1-7); LYMPHOCYTES # (AUTO) 1.27 x10^3/uL (1-3.4); LYMPHOCYTES % (AUTO) 14 % (22-44); MD NO; MEAN CORPUSCULAR HEMOGLOBIN 32.7 pg (27.5-34.5); MEAN CORPUSCULAR VOLUME 96.4 fL (81-97); MEAN PLATELET VOLUME 10.9 fL (7.4-10.4); MONOCYTES # (AUTO) 0.85 x10^3/uL (0.2-0.8); MONOCYTES % (AUTO) 10 % (2-9); NEUTROPHILS # (AUTO) 6.09 x10^3/uL (1.8-6.8); NEUTROPHILS % (AUTO) 69 % (42-75); PLATELET COUNT 353 x10^3/uL (130-400); RED BLOOD COUNT 3.82 x10^6/uL (4.38-5.82); RED CELL DISTRIBUTION WIDTH 12.9 % (9.4-14.8)
[2017-07-03 05:51] LABS: ALBUMIN 2.2 g/dL (3.4-5.0); ANION GAP 8 mmol/L (5-15); CALCIUM 8.3 mg/dL (8.5-10.1); CHLORIDE 117 mmol/L (98-107); CREATININE 1.01 mg/dL (0.7-1.3)
[2017-07-03 06:58] VITALS: BP 127/75
[2017-07-03] MEDS: FAMOTIDINE 20 MG/2 ML IV SCH ×2 (08:51→21:35)
[2017-07-03] MEDS: TICAGRELOR 90 MG TABLET PO SCH ×2 (08:52→21:35)
[2017-07-03] MEDS: FOLIC ACID 1 MG TABLET NG SCH (08:52)
[2017-07-03] MEDS: DOCUSATE 50 MG/5 ML, 10ML UDC PO SCH (08:52)
[2017-07-03] MEDS: MULTIVITAMIN 1 TABLET PO SCH (08:52)
[2017-07-03] MEDS: THIAMINE 100MG TABLET NG SCH (08:52)
[2017-07-03] MEDS: SENNOSIDES 8.8 MG/5 ML ORAL SOL PO SCH (08:52)
[2017-07-03] MEDS: LISINOPRIL 5 MG TABLET PO SCH (09:00)
[2017-07-03 14:00] VITALS: BP 112/74
[2017-07-03] MEDS: ASPIRIN 81 MG TABLET CHEW PO SCH (17:54)
[2017-07-03 20:00] VITALS: BP 106/50
[2017-07-03] MEDS: ATORVASTATIN 40 MG TABLET PO SCH (21:35)
[2017-07-04] MEDS: HEPARIN 5,000 UNITS/ML, 1ML SQ SCH ×3 (01:37→17:20)
[2017-07-04] MEDS: PIPERACILLIN/TAZO 4.5 GM in SODIUM CHLORIDE 0.9% 100 ML IV SCH (01:37)
[2017-07-04 01:53] VITALS: BP 145/78
[2017-07-04 06:59] VITALS: BP 154/78
[2017-07-04] MEDS: DOCUSATE 50 MG/5 ML, 10ML UDC PO SCH (07:55)
[2017-07-04] MEDS: FAMOTIDINE 20 MG/2 ML IV SCH ×2 (08:41→19:40)
[2017-07-04] MEDS: FOLIC ACID 1 MG TABLET NG SCH (08:42)
[2017-07-04] MEDS: MULTIVITAMIN 1 TABLET PO SCH (08:42)
[2017-07-04] MEDS: TICAGRELOR 90 MG TABLET PO SCH ×2 (08:42→19:40)
[2017-07-04] MEDS: LISINOPRIL 5 MG TABLET PO SCH (08:42)
[2017-07-04] MEDS: THIAMINE 100MG TABLET NG SCH (08:42)
[2017-07-04] MEDS: SENNOSIDES 8.8 MG/5 ML ORAL SOL PO SCH (09:00)
[2017-07-04] MEDS ORDERED: CEFTRIAXONE PMX 2GM/50ML 50 ML IV SCH (11:30)
[2017-07-04] MEDS: PIPERACILLIN/TAZO/PMX 3.375GM 50 ML IV SCH ×2 (12:52→19:40)
[2017-07-04] MEDS ORDERED: ONDANSETRON 2MG/ML, 2ML ONE (13:01)
[2017-07-04] MEDS ORDERED: ONDANSETRON 2MG/ML, 2ML IVPush PRN (13:30)
[2017-07-04 14:56] VITALS: BP 127/66
[2017-07-04] MEDS: ASPIRIN 81 MG TABLET CHEW PO SCH (17:20)
[2017-07-04] MEDS: ATORVASTATIN 40 MG TABLET PO SCH (19:40)
[2017-07-04 19:48] VITALS: BP 123/78
[2017-07-05] MEDS: HEPARIN 5,000 UNITS/ML, 1ML SQ SCH ×2 (01:16→08:41)
[2017-07-05] MEDS: PIPERACILLIN/TAZO/PMX 3.375GM 50 ML IV SCH ×3 (01:17→13:04)
[2017-07-05 01:18] VITALS: BP 116/64
[2017-07-05 06:11] LABS: MEAN CORPUSCULAR HEMOGLOBIN 33.4 pg (27.5-34.5); MEAN CORPUSCULAR HGB CONC 34.4 g/dL (33.2-36.2); MEAN CORPUSCULAR VOLUME 97.2 fL (81-97); RED BLOOD COUNT 3.91 x10^6/uL (4.38-5.82); RED CELL DISTRIBUTION WIDTH 12.9 % (9.4-14.8)
[2017-07-05 06:24] LABS: CALCIUM 8.6 mg/dL (8.5-10.1); CHLORIDE 116 mmol/L (98-107)
[2017-07-05 06:28] LABS: ANION GAP 8 mmol/L (5-15); CREATININE 1.18 mg/dL (0.7-1.3)
[2017-07-05 06:29] LABS: MEAN PLATELET VOLUME 11.3 fL (7.4-10.4); PLATELET COUNT 384 x10^3/uL (130-400)
[2017-07-05 06:32] LABS: <PLATELET ESTIMATE> ADEQUATE; <RBC MORPHOLOGY> NORMAL; BASOPHILS # (AUTO) 0.07 x10^3/uL (0-0.1); BASOPHILS % (AUTO) 1 % (0-1); EOSINOPHILS # (AUTO) 0.66 x10^3/uL (0-0.4); EOSINOPHILS % (AUTO) 8 % (1-7); GIANT PLATELETS 1+; LARGE PLATELETS 1+; LYMPHOCYTES # (AUTO) 1.12 x10^3/uL (1-3.4); LYMPHOCYTES % (AUTO) 14 % (22-44); MD MORPH REVIEW ONLY; MONOCYTES # (AUTO) 0.97 x10^3/uL (0.2-0.8); MONOCYTES % (AUTO) 12 % (2-9); NEUTROPHILS # (AUTO) 5.35 x10^3/uL (1.8-6.8); NEUTROPHILS % (AUTO) 66 % (42-75)
[2017-07-05 07:55] VITALS: BP 131/68
[2017-07-05] MEDS: SENNOSIDES 8.8 MG/5 ML ORAL SOL PO SCH (08:38)
[2017-07-05] MEDS: DOCUSATE 50 MG/5 ML, 10ML UDC PO SCH (08:38)
[2017-07-05] MEDS: TICAGRELOR 90 MG TABLET PO SCH (08:39)
[2017-07-05] MEDS: LISINOPRIL 5 MG TABLET PO SCH (08:39)
[2017-07-05] MEDS: FOLIC ACID 1 MG TABLET NG SCH (08:39)
[2017-07-05] MEDS: FAMOTIDINE 20 MG/2 ML IV SCH (08:40)
[2017-07-05] MEDS: THIAMINE 100MG TABLET NG SCH (08:40)
[2017-07-05] MEDS: MULTIVITAMIN 1 TABLET PO SCH (08:47)
[2017-07-05 14:13] VITALS: BP 137/71
[2017-07-05] MEDS ORDERED: MULT1TAB60 PO (15:38)
[2017-07-05] MEDS ORDERED: DOCU50LI12 PO (15:38)
[2017-07-05] MEDS ORDERED: ATOR40TA78 PO (15:38)
[2017-07-05] MEDS ORDERED: ASPI-515 PO (15:38)
[2017-07-05] MEDS ORDERED: LISI5TAB7 PO (15:38)
[2017-07-05] MEDS ORDERED: TICA90TA PO (15:38)
[2017-07-05] MEDS ORDERED: CEFD300C37 PO (15:38)
== END 2017-07-05 16:57 | disposition home or self-care (01) | DRG 853 ==
LOC: ED 13:51 → ICU 14:31 → ED 16:42 → 5SO 06-29 13:26 → DCLOUNGE 07-05 16:31
PROVIDERS: ADMIT Hospitalist; ATTEND Hospitalist
PROC: 5A1955Z Respiratory Ventilation, Greater than 96 Consecutive Hours (ICD-10-PCS; principal; 2017-06-20)
PROC: 0BH17EZ Insertion of Endotracheal Airway into Trachea, Via Natural or Artificial Opening (ICD-10-PCS; 2017-06-20)
PROC: 5A12012 Performance of Cardiac Output, Single, Manual (ICD-10-PCS; 2017-06-20)
PROC: 3E04317 Introduction of Other Thrombolytic into Central Vein, Percutaneous Approach (ICD-10-PCS; 2017-06-20)
PROC: 0T9B70Z Drainage of Bladder with Drainage Device, Via Natural or Artificial Opening (ICD-10-PCS; 2017-06-20)
PROC: 027034Z Dilation of Coronary Artery, One Artery with Drug-eluting Intraluminal Device, Percutaneous Approach (ICD-10-PCS; 2017-07-02)
PROC: 4A023N7 Measurement of Cardiac Sampling and Pressure, Left Heart, Percutaneous Approach (ICD-10-PCS; 2017-07-02)
PROC: B2111ZZ Fluoroscopy of Multiple Coronary Arteries using Low Osmolar Contrast (ICD-10-PCS; 2017-07-02)
PROC: B2151ZZ Fluoroscopy of Left Heart using Low Osmolar Contrast (ICD-10-PCS; 2017-07-02)
DX: A41.9 Sepsis, unspecified organism (principal); I21.09 ST elevation (STEMI) myocardial infarction involving other coronary artery of anterior wall; I46.2 Cardiac arrest due to underlying cardiac condition; J96.00 Acute respiratory failure, unspecified whether with hypoxia or hypercapnia; J69.0 Pneumonitis due to inhalation of food and vomit; G93.41 Metabolic encephalopathy; R13.10 Dysphagia, unspecified; I49.01 Ventricular fibrillation; I46.9 Cardiac arrest, cause unspecified; I42.9 Cardiomyopathy, unspecified; F10.239 Alcohol dependence with withdrawal, unspecified; I47.2 Ventricular tachycardia; Z99.11 Dependence on respirator [ventilator] status; D69.6 Thrombocytopenia, unspecified; B96.1 Klebsiella pneumoniae [K. pneumoniae] as the cause of diseases classified elsewhere; I25.10 Atherosclerotic heart disease of native coronary artery without angina pectoris; I48.91 Unspecified atrial fibrillation; Z79.02 Long term (current) use of antithrombotics/antiplatelets; Z79.82 Long term (current) use of aspirin
CPT/HCPCS: 36415; 36600; 51702; 70551; 71010; 71045; 71046; 74018; 74230; 80048; 80053; 80061; 81001; 81003; 82040; 82306; 82607; 82803; 83036; 83735; 83880; 84100; 84443; 84478; 84484; 85025; 85520; 85610; 85730; 86022; 87040; 87070; 87077; 87081; 87086; 87147; 87186; 87205; 87400; 92950; 93005; 93306; 93458; 94002; 94003; 94150; 96365; 96366; 96376; 99156; C1769; C1894; C9600; J0295; J0583; J1644; J1940; J2250; J2405; J2543; J2704; J3010; J3360; J3370; J3411; J3490; J7042; C1874; C1887; J0282; J7030; J7040; J7050; J7060; Q9967; S0028